=== PATIENT | male | born 1975 | race Caucasian/White ===

== ENCOUNTER 2022-11-03 04:31 | Day surgery (SDC) | payer OTHER ==
[2022-10-30 14:03] VITALS: BMI 31.0
[2022-11-03 14:14] VITALS: TEMP 98
[2022-11-03 14:45] VITALS: BP 140/82; PULSE 69; RESP 16
== END 2022-11-03 14:47 | disposition home or self-care (01) ==
LOC: JASU-ENDO 04:31
PROVIDERS: ATTEND Student in an Organized Health Care Education/Training Program
PROC: 0DBP8ZX Excision of Rectum, Via Natural or Artificial Opening Endoscopic, Diagnostic (ICD-10-PCS; principal; 2022-11-03 14:30)
DX: Z12.11 Encounter for screening for malignant neoplasm of colon (principal); K62.1 Rectal polyp
CPT/HCPCS: 88305-TC

== ENCOUNTER 2023-06-16 17:53 | Emergency (ER) | payer OTHER ==
[2023-06-16 18:13] VITALS: RESP 17; TEMP 98.4; BMI 37.6
[2023-06-16 20:51] VITALS: BP 159/101; PULSE 80
[2023-06-16] MEDS ORDERED: ACETAMINOPHEN 500 MG TABLET (FP) PO ONE (20:56)
[2023-06-16] MEDS ORDERED: METHOCARBAMOL 750 MG TABLET PO ONE (20:56)
[2023-06-16] MEDS ORDERED: KETOROLAC TROMETHAMINE 10 MG TABLET PO ONE ×2 (20:57→21:05)
[2023-06-16] MEDS ORDERED: ACETAMINOPHEN 500 MG TABLET (FP) ONE (21:03)
[2023-06-16] MEDS ORDERED: METHOCARBAMOL 500 MG TABLET ONE (21:03)
== END 2023-06-16 21:16 | disposition home or self-care (01) ==
LOC: JER 17:53 → JERFT 17:53
DX: M54.50 Low back pain, unspecified (principal); V49.40XA Driver injured in collision with unspecified motor vehicles in traffic accident, initial encounter; Y92.410 Unspecified street and highway as the place of occurrence of the external cause
CPT/HCPCS: 99283-25